=== PATIENT | male | born 2000 | race Caucasian/White ===

== ENCOUNTER 2025-04-07 08:28 | Emergency (ER) | payer SELFPAY ==
[2025-04-07] MEDS: Ondansetron 4 MG/2 ML SDV IVPUSH ONE (09:24)
[2025-04-07 09:29] LABS: BASE EXCESS VENOUS 0.8 mm/L; BASOPHILS ABSOLUTE AUTO 0.04 K/uL (0.00-0.10); BASOPHILS PERCENT AUTO 0.2 % (0.1-1.3); BICARBONATE,VENOUS 23.5 mmol/L; EOSINOPHILS ABSOLUTE AUTO 0.24 K/uL (0.00-0.40); EOSINOPHILS PERCENT AUTO 1.4 % (0.0-5.4); IMMATURE GRAN ABSOLUTE AUTO 0.06 K/uL (0.00-0.23); IMMATURE GRAN PERCENT AUTO 0.3 % (0.0-0.7); LYMPHOCYTES ABSOLUTE AUTO 0.72 K/uL (0.8-3.3); LYMPHOCYTES PERCENT AUTO 4.1 % (11.4-47.7); MONOCYTES ABSOLUTE AUTO 0.96 K/uL (0.20-0.90); MONOCYTES PERCENT AUTO 5.4 % (3.3-12.6); NEUTROPHILS ABSOLUTE AUTO 15.63 K/uL (1.0-7.6); NEUTROPHILS PERCENT AUTO 88.6 % (40.0-78.1); O2 SATURATION VENOUS 88.1; OXYHEMOGLOBIN 85.3 %; PCO2 VENOUS 33.8 mm/Hg; PH,VENOUS 7.457 (7.350-7.450); PLATELET COUNT,PLT 273 K/uL (130-375); PO2 VENOUS 55.2 mm/Hg; RED BLOOD CELL COUNT 4.88 M/uL (4.14-5.76); TOTAL HEMOGLOBIN 16.7 g/dL (13.5-18.0); WHITE BLOOD CELL COUNT,WBC 17.7 K/uL (3.2-11.0)
[2025-04-07 09:53] LABS: A/G RATIO 1.0 (1.2-2.2); ALANINE AMINOTRANSFERASE,ALT 31 U/L (12-78); ASPARTATE AMNIOTRANSFERASE,AST 20 U/L (15-37); BILIRUBIN TOTAL 2.0 mg/dL (0.2-1.0); BLOOD UREA NITROGEN,BUN 10 mg/dL (7-18); CARBON DIOXIDE,CO2 26 mmol/L (21-32); CHLORIDE,CL 105 mmol/L (100-108); CREATININE 0.7 mg/dL (0.8-1.3); EST CRCL DRUG DOSING (CG) 161.32 mL/min; ESTIMATED GFR 131 mL/min (>60); GLUCOSE RANDOM 137 mg/dL (74-106); POTASSIUM,K 3.0 mmol/L (3.6-5.2); PROTEIN TOTAL,TP 8.6 g/dL (6.4-8.2); SODIUM,NA 143 mmol/L (140-148)
== END 2025-04-07 12:20 | disposition home or self-care (01) ==
LOC: JP.ED 08:28
DX: J18.9 Pneumonia, unspecified organism (principal)
CPT/HCPCS: 36415; 71046; 80053; 82803; 83605; 85025; 85379; 86140; 87428; 96361; 96365; 96366; 96375; 99285; J0456; J2405; J7030; J7050

== ENCOUNTER 2025-04-08 05:26 | Emergency (ER) | payer SELFPAY ==
[2025-04-08 05:42] LABS: BASOPHILS ABSOLUTE AUTO 0.04 K/uL (0.00-0.10); BASOPHILS PERCENT AUTO 0.2 % (0.1-1.3); EOSINOPHILS ABSOLUTE AUTO 0.32 K/uL (0.00-0.40); EOSINOPHILS PERCENT AUTO 1.5 % (0.0-5.4); IMMATURE GRAN ABSOLUTE AUTO 0.11 K/uL (0.00-0.23); IMMATURE GRAN PERCENT AUTO 0.5 % (0.0-0.7); LYMPHOCYTES ABSOLUTE AUTO 0.68 K/uL (0.8-3.3); LYMPHOCYTES PERCENT AUTO 3.3 % (11.4-47.7); MONOCYTES ABSOLUTE AUTO 1.51 K/uL (0.20-0.90); MONOCYTES PERCENT AUTO 7.3 % (3.3-12.6); NEUTROPHILS ABSOLUTE AUTO 18.15 K/uL (1.0-7.6); NEUTROPHILS PERCENT AUTO 87.2 % (40.0-78.1); PLATELET COUNT,PLT 280 K/uL (130-375); RED BLOOD CELL COUNT 4.86 M/uL (4.14-5.76); WHITE BLOOD CELL COUNT,WBC 20.8 K/uL (3.2-11.0)
[2025-04-08] MEDS: methylPREDNISolone Sodium Succinate 125 MG/2 ML SDV IVPUSH ONE (05:43)
[2025-04-08 06:02] LABS: A/G RATIO 0.9 (1.2-2.2); ALANINE AMINOTRANSFERASE,ALT 31 U/L (12-78); ASPARTATE AMNIOTRANSFERASE,AST 20 U/L (15-37); BILIRUBIN TOTAL 1.6 mg/dL (0.2-1.0); BLOOD UREA NITROGEN,BUN 8 mg/dL (7-18); CARBON DIOXIDE,CO2 26 mmol/L (21-32); CHLORIDE,CL 104 mmol/L (100-108); CREATININE 0.6 mg/dL (0.8-1.3); EST CRCL DRUG DOSING (CG) 182.08 mL/min; ESTIMATED GFR 137 mL/min (>60); GLUCOSE RANDOM 158 mg/dL (74-106); POTASSIUM,K 3.1 mmol/L (3.6-5.2); PROTEIN TOTAL,TP 8.3 g/dL (6.4-8.2); SODIUM,NA 143 mmol/L (140-148)
[2025-04-08 06:06] LABS: BASE EXCESS VENOUS 0.8 mm/L; BICARBONATE,VENOUS 24.6 mmol/L; O2 SATURATION VENOUS 87.6; OXYHEMOGLOBIN 84.7 %; PCO2 VENOUS 38.4 mm/Hg; PH,VENOUS 7.422 (7.350-7.450); PO2 VENOUS 49.5 mm/Hg; TOTAL HEMOGLOBIN 16.0 g/dL (13.5-18.0)
[2025-04-08 06:07] LABS: LACTIC ACID 1.7 mmol/L (0.4-2.0)
[2025-04-08] MEDS: LORazepam 2 MG/ML SDV IVPUSH ONE (06:07)
[2025-04-08] MEDS: Sodium Chloride 0.9% 10 ML Syringe FLUSH ONE (07:32)
[2025-04-08] MEDS: Iopamidol 755 Mg/ML 100 ML Bottle IV SCH (07:32)
[2025-04-08 08:17] LABS: BASE EXCESS ARTERIAL -0.1 mm/L; BICARBONATE,ARTERIAL 24.1 mmol/L (22.0-26.0); O2 SATURATION ARTERIAL 95.6 % (95.0-98.0); OXYHEMOGLOBIN 93.2 %; PCO2 ARTERIAL 39.7 mmHg (35.0-42.0); TOTAL HEMOGLOBIN 15.7 g/dL (13.5-18.0)
[2025-04-08 08:20] LABS: PO2 ARTERIAL 77.9 mmHg (75.0-100.0)
== END 2025-04-08 14:06 ==
LOC: JP.ED 05:26
DX: J18.9 Pneumonia, unspecified organism (principal); J98.2 Interstitial emphysema; R59.0 Localized enlarged lymph nodes; Z88.0 Allergy status to penicillin
CPT/HCPCS: 36415; 36600; 71275; 80053; 82803; 83605; 84484; 85025; 85379; 86140; 87040; 93005; 94640; 96365; 96375; 99285; J0696; J2060; J2919; J7030; J7620; Q9967; A9270-GY